=== PATIENT | male | born 1995 | race Caucasian/White ===

== ENCOUNTER 2019-08-18 12:51 | Emergency (ER) | payer MEDICAID ==
[~2019-08-18] VITALS: Ht 185.4 cm; Wt 62.1 kg
[2019-08-18 12:56] VITALS: BP 130/66
[2019-08-18] MEDS: IBUPROFEN 800 MG TAB PO ONE ×3 (13:10→13:16)
--- NOTE | 2019-08-18 13:14 | NUR ---
Pt c/o left ankle pain s/p mechanical fall while playing with pt kids this morning. +1 edema w/o erythema, discoloration, or deformity noticed. Reduced ROM of left ankle. PATIENT STATES PAIN OF 10/10 w/ movement or walking AT THIS TIME; VSS; PATIENT POSITIONED FOR COMFORT; HOB ELEVATED; BEDRAILS UP X1; BED DOWN. ER MD MADE AWARE OF PT STATUS.
--- NOTE | 2019-08-18 14:14 | NUR ---
XR AT BEDSIDE.
--- NOTE | 2019-08-18 14:23 | NUR ---
DR. MARTINEZ AT BEDSIDE.
[2019-08-18 14:25] VITALS: BP 124/68
== END 2019-08-18 14:29 | disposition home or self-care (01) ==
LOC: MED 12:51
DX: S93.402A Sprain of unspecified ligament of left ankle, initial encounter (principal); S93.602A Unspecified sprain of left foot, initial encounter; W19.XXXA Unspecified fall, initial encounter; Y93.89 Activity, other specified; Y92.098 Other place in other non-institutional residence as the place of occurrence of the external cause; Y99.8 Other external cause status
CPT/HCPCS: 73610; 99283

== ENCOUNTER 2020-02-21 19:48 | Emergency (ER) | payer SELFPAY ==
[~2020-02-21] VITALS: Ht 171.4 cm; Wt 64.5 kg
[2020-02-21 19:57] VITALS: BP 129/72
--- NOTE | 2020-02-21 20:01 | NUR ---
PT AMBULATED TO BED 8 WITH STEADY GAIT
--- NOTE | 2020-02-21 20:35 | NUR ---
ERMD AT BEDSIDE
--- NOTE | 2020-02-21 20:41 | NUR ---
24 Y/O MALE C/O 10/16 "POKING" CHEST PAIN X30 MIN. BEGAN WITH R SIDED JAW PAIN THAT MOVED TO HIS L SIDE CHEST WHILE AT REST. VOMIT X3. DENIES OTC MEDS. LUNG SOUNDS CLA. ABD SOFT NON TENDER. VSS. MED HX: "HEART PROBLEM" RX: DENIES NKA
--- NOTE | 2020-02-21 20:50 | NUR ---
LAB AT BEDSIDE TO DRAW LABS
[2020-02-21 20:57] LABS: BASOPHILS # (AUTO) 0.1 K/uL (0.00-0.22); BASOPHILS % (AUTO) 0.8 % (0.0-2.0); EOSINOPHILS # (AUTO) 0.1 K/uL (0-0.4); EOSINOPHILS % (AUTO) 1.4 % (0.0-4.0); HEMATOCRIT 41.6 % (36-52); HEMOGLOBIN 14.1 g/dL (12.0-18.0); LYMPHOCYTES # (AUTO) 1.8 K/uL (2.0-11.5); LYMPHOCYTES % (AUTO) 26.8 % (20.5-51.1); MEAN CORPUSCULAR HEMOGLOBIN 31 pg (27-31); MEAN CORPUSCULAR HGB CONC 34 g/dL (33-37); MEAN CORPUSCULAR VOLUME 91.1 fL (80-94); MONOCYTES # (AUTO) 0.6 K/uL (0.8-1.0); MONOCYTES % (AUTO) 8.9 % (1.7-9.3); NEUTROPHILS # (AUTO) 4.2 K/uL (1.8-7.7); NEUTROPHILS % (AUTO) 62.1 % (42.2-75.2); PLATELET COUNT (AUTO) 227 K/uL (140-450); RED BLOOD CELL COUNT(AUTO) 4.57 MIL/uL (4.20-6.10); RED CELL DISTRIBUTION WIDTH 13.7 % (11.6-13.7); WHITE BLOOD COUNT (AUTO) 6.8 K/uL (4.8-10.8)
[2020-02-21 21:13] LABS: ALBUMIN 4.1 g/dL (3.4-5.0); ANION GAP 15.9 (8-16); CARBON DIOXIDE 24.6 mmol/L (21-32); CREATININE 0.9 mg/dL (0.6-1.3); POTASSIUM 3.5 mmol/L (3.5-5.1); TOTAL BILIRUBIN 0.3 mg/dL (0.0-1.0)
--- NOTE | 2020-02-21 21:20 | NUR ---
XRAY AT BEDSIDE
[2020-02-21 21:37] VITALS: BP 129/72
--- NOTE | 2020-02-21 21:37 | NUR ---
Patient discharged with v/s stable. Written and verbal after care instructions given and explained. Patient verbalized understanding. Ambulatory with steady gait. ID Band Removed. All questions addressed prior to discharge. Advised to follow up with PMD.
== END 2020-02-21 21:37 | disposition home or self-care (01) ==
LOC: MED 19:48
DX: R55 Syncope and collapse (principal); R42 Dizziness and giddiness; E86.0 Dehydration; R00.2 Palpitations
CPT/HCPCS: 36415; 71045; 80053; 82948; 85025; 93005; 99285; Q0092

== ENCOUNTER 2022-08-08 19:53 | Emergency (ER) | payer SELFPAY ==
[~2022-08-08] VITALS: Ht 167.6 cm; Wt 56.7 kg
[2022-08-08 20:15] VITALS: BP 117/63
--- NOTE | 2022-08-08 20:15 | NUR ---
TO BED AMBULATORY
--- NOTE | 2022-08-08 20:46 | NUR ---
Patient received on bed lying and awake. Alert and oriented x4. No acute distress. Complained of generalized body pain with scale of 6/10. Respirations even and unlabored. Left wrist present with swelling and limited range of motion. Able to move fingers on the left hand without difficulty. Multiple skin abrasions located on the left eyebrow, left elbow, right knee, right foot, left foot.
[2022-08-08] MEDS ORDERED: KETOROLAC 30 MG/ML VIAL IVP ONE (23:25)
[2022-08-08] MEDS ORDERED: NACL 0.9% 1,000 ML IV ONE (23:25)
[2022-08-08] MEDS ORDERED: LIDOCAINE 1% 500 MG/ 50 ML VIAL INJ ONE (23:35)
[2022-08-08] MEDS ORDERED: LIDOCAINE MPF 1% 5 ML ONE (23:40)
[2022-08-09 01:18] LABS: CARBON DIOXIDE 19.6 mmol/L (21-32); CREATININE 0.9 mg/dL (0.6-1.3); POTASSIUM 3.6 mmol/L (3.5-5.1); TOTAL BILIRUBIN 0.5 mg/dL (0.0-1.0)
[2022-08-09 01:29] LABS: BASOPHILS # (AUTO) 0.1 K/uL (0.00-0.22); BASOPHILS % (AUTO) 0.5 % (0.0-2.0); EOSINOPHILS % (AUTO) 0.1 % (0.0-4.0); HEMOGLOBIN 13.8 g/dL (12.0-18.0); LYMPHOCYTES # (AUTO) 1.3 K/uL (2.0-11.5); LYMPHOCYTES % (AUTO) 8.3 % (20.5-51.1); MEAN CORPUSCULAR HEMOGLOBIN 32 pg (27-31); MEAN CORPUSCULAR HGB CONC 35 g/dL (33-37); MEAN CORPUSCULAR VOLUME 91.9 fL (80-94); MONOCYTES # (AUTO) 0.9 K/uL (0.8-1.0); MONOCYTES % (AUTO) 5.6 % (1.7-9.3); NEUTROPHILS # (AUTO) 13.7 K/uL (1.8-7.7); NEUTROPHILS % (AUTO) 85.5 % (42.2-75.2); PLATELET COUNT (AUTO) 260 K/uL (140-450); RED BLOOD CELL COUNT(AUTO) 4.35 MIL/uL (4.20-6.10); RED CELL DISTRIBUTION WIDTH 13.4 % (11.6-13.7)
--- NOTE | 2022-08-09 01:38 | NUR ---
Patient taken to CT scan with RN.
[2022-08-09] MEDS ORDERED: NACL 0.9% 1,000 ML IV ONE (02:20)
[2022-08-09] MEDS ORDERED: cefTRIAXone 1,000 MG VIAL ONE (02:27)
--- NOTE | 2022-08-09 03:30 | NUR ---
3 stitches were done by the ER MD, Dr. Hanna, for the patient's left eye brow skin laceration.
[2022-08-09] MEDS ORDERED: NAPR-54 PO (03:37)
[2022-08-09 03:40] LABS: APPEARANCE,URINE CLEAR (CLEAR); BILIRUBIN,URINE NEGATIVE (NEGATIVE); BLOOD, URINE NEGATIVE (NEGATIVE); COLOR,URINE YELLOW (YELLOW); LEUKOCYTE ESTERASE ,URINE NEGATIVE (NEGATIVE); NITRITE, URINE NEGATIVE (NEGATIVE); UGLUCOSE NEGATIVE (NEGATIVE)
[2022-08-09] MEDS ORDERED: CEPH-588 PO (03:45)
[2022-08-09 04:00] VITALS: BP 111/53
== END 2022-08-09 03:40 | disposition home or self-care (01) ==
LOC: MED 19:53
DX: S01.112A Laceration without foreign body of left eyelid and periocular area, initial encounter (principal); S80.211A Abrasion, right knee, initial encounter; S39.91XA Unspecified injury of abdomen, initial encounter; M25.532 Pain in left wrist; W18.30XA Fall on same level, unspecified, initial encounter; Y93.01 Activity, walking, marching and hiking; Y92.89 Other specified places as the place of occurrence of the external cause; Y99.8 Other external cause status
CPT/HCPCS: 12013; 36415; 70450; 72125; 74177; 80053; 81003; 83605; 85025; 87040; 90471; 96361; 96365; 96375; 99285; J0696; J1885; J2001; J7030; Q9967